=== PATIENT | female | born 1980 | race Caucasian/White ===

== ENCOUNTER 2016-07-02 15:20 | Emergency (ER) | payer OTHER ==
[~2016-07-02] VITALS: Ht 167.6 cm; Wt 72.6 kg
[2016-07-02 15:25] VITALS: BP 133/92
[2016-07-02 15:43] VITALS: BP 124/85
--- NOTE | 2016-07-02 22:30 | NUR ---
TO ER BED 5
--- NOTE | 2016-07-02 22:30 | NUR ---
PLACED IN BED 5. HERE FOR PAIN AND LUMP ON THE GENITAL AREA. AWAITING ER-MD EVALUATION.
--- NOTE | 2016-07-02 22:35 | NUR ---
MD CAME AT BEDSIDE TO EVALUATE PT.
[2016-07-02] MEDS ORDERED: IBUPROFEN 800 MG TAB PO ONE (23:00)
[2016-07-02] MEDS ORDERED: SULFAMETH/TRIMETH DS 800/160MG 1 TAB PO ONE (23:00)
[2016-07-02 23:20] VITALS: BP 124/85
--- NOTE | 2016-07-02 23:22 | NUR ---
Patient discharged with v/s stable. Written and verbal after care instructions given and explained. Patient alert, oriented and verbalized understanding of instructions. Ambulatory with steady gait. All questions addressed prior to discharge. ID band removed. Patient advised to follow up with PMD. Rx of BACTRIM AND IBUPROFEN given. Patient educated on indication of medication including possible reaction and side effects. Opportunity to ask questions provided and answered.
== END 2016-07-02 23:22 | disposition home or self-care (01) ==
LOC: MED 15:20
DX: L03.314 Cellulitis of groin (principal); R03.0 Elevated blood-pressure reading, without diagnosis of hypertension; Z87.442 Personal history of urinary calculi

== ENCOUNTER 2016-10-18 14:09 | Emergency (ER) | payer OTHER ==
[~2016-10-18] VITALS: Ht 167.6 cm; Wt 70.8 kg
[2016-10-18 14:36] VITALS: BP 130/76
--- NOTE | 2016-10-18 15:15 | NUR ---
PT TO BED 7 AT THIS TIME.
--- NOTE | 2016-10-18 15:16 | NUR ---
36/F BIB SELF C/O RIGHT EYE PAIN 10/10 WITH DIZZINESS, HEADACHE, AND NAUSEA STARTED 11AM TODAY; DENIES N/V/D; SKIN IS PINK/WARM/DRY; AAOX4 WITH EVEN AND STEADY GAIT; LUNGS CLEAR BL; HR EVEN AND REGULAR; PT DENIES ANY FEVER, CP, SOB, OR COUGH AT THIS TIME; PATIENT STATES PAIN OF10/10 AT THIS TIME; VSS; PATIENT POSITIONED FOR COMFORT; HOB ELEVATED; BEDRAILS UP X2; BED DOWN. ER MD MADE AWARE OF PT STATUS.
--- NOTE | 2016-10-18 15:18 | NUR ---
DR FRANCIS EVALUATING PT AT BEDSIDE
[2016-10-18] MEDS ORDERED: TETRACAINE 0.5% OPTH SOL 2 ML BTL OP ONE (15:20)
--- NOTE | 2016-10-18 15:32 | NUR ---
Zackary huggins in ED - 10/18/16 at 1533 by MED1 I&D DONE BY ROMAIN HALL. PT TOLERATED PROCEDURE WELL.
[2016-10-18] MEDS ORDERED: KETOROLAC 60 MG/2 ML VIAL IM ONE (15:40)
[2016-10-18] MEDS ORDERED: LIDOCAINE 1% 500 MG/50 ML VIAL INJ ONE (16:35)
--- NOTE | 2016-10-18 16:40 | NUR ---
DR FRANCIS ADMINISTERED XYLOCINE TO R LOER BACK OF SKULL. PT TOLERATED PROCEDURE WELL.Patient appears to be resting comfortably in bed. Vital Signs within normal limits. Respirations even and unlabored.WILL CONTINUE TRO MONITOR.
[2016-10-18 17:25] VITALS: BP 125/82
== END 2016-10-18 17:25 | disposition home or self-care (01) ==
LOC: MED 14:09
DX: R51 Headache (principal); H57.11 Ocular pain, right eye; H53.8 Other visual disturbances; R11.0 Nausea
CPT/HCPCS: 20552; 96372; 99284; J1885; J2001; 99283

== ENCOUNTER 2017-10-21 12:21 | Emergency (ER) | payer SELFPAY ==
[~2017-10-21] VITALS: Ht 165.1 cm; Wt 73.5 kg
[2017-10-21 12:24] VITALS: BP 121/80
[2017-10-21] MEDS ORDERED: KETOROLAC 60 MG/2 ML VIAL IM ONE (12:40)
[2017-10-21] MEDS ORDERED: diphenhydrAMINE 50 MG CAP PO ONE (12:40)
[2017-10-21] MEDS ORDERED: fentaNYL 0.05 MG/ML VIAL IM ONE (13:40)
[2017-10-21 15:46] VITALS: BP 122/65
== END 2017-10-21 15:46 | disposition home or self-care (01) ==
LOC: MED 12:21
DX: G44.209 Tension-type headache, unspecified, not intractable (principal); H53.8 Other visual disturbances
CPT/HCPCS: 81002; 81025; 96372; 99284; J1885; J3010; Q0163

== ENCOUNTER 2018-02-24 11:34 | Emergency (ER) | payer OTHER ==
[~2018-02-24] VITALS: Ht 167.6 cm; Wt 73.5 kg
--- NOTE | 2018-02-24 11:39 | NUR ---
PATIENT AMBULATED TO ER BED 7.
[2018-02-24 11:43] VITALS: BP 120/64
--- NOTE | 2018-02-24 12:03 | NUR ---
PT C/O 09/17 LOWER ABD CRAMPING SINCE TODAY. DENIES N/V/D. NO FEVERS, CP, SOB. NO OTHER COMPLAINTS. PT GIVEN URINE CUP AT TIME OF TRIAGE. DENIES URINARY BURNING AND FREQUENCY. PT STATES PRESSURE IS INTENSIFIED DURING URINATION. PT STATES SHE FEELS PRESSURE OR 'PUSHING' AND RADIATES TO FLANKS. VSS; PATIENT POSITIONED FOR COMFORT; HOB ELEVATED; BEDRAILS UP X1; BED DOWN. ER MD MADE AWARE OF PT STATUS.
--- NOTE | 2018-02-24 12:10 | NUR ---
STILL COMPLAINING OF ABD. PAIN 08/18. DR. OWUSU MADE AWARE
[2018-02-24] MEDS ORDERED: NACL 0.9% 1,000 ML IV SCH (12:19)
[2018-02-24] MEDS ORDERED: MORPHINE SULFATE 4 MG/ML SYR IVP ONE (12:20)
[2018-02-24] MEDS ORDERED: KETOROLAC 30 MG/ML VIAL IVP ONE (12:20)
[2018-02-24] MEDS ORDERED: ONDANSETRON 4 MG/2 ML VIAL IVP ONE (12:20)
[2018-02-24 13:19] LABS: BASOPHILS # (AUTO) 0.1 K/uL (0.00-0.22); BASOPHILS % (AUTO) 1.5 % (0.0-2.0); EOSINOPHILS # (AUTO) 0.1 K/uL (0-0.4); HEMATOCRIT 28.7 % (36-48); HEMOGLOBIN 8.6 g/dL (12.0-16.0); LYMPHOCYTES # (AUTO) 1.6 K/uL (2.5-16.5); LYMPHOCYTES % (AUTO) 21.7 % (20.5-51.1); MEAN CORPUSCULAR HEMOGLOBIN 19 pg (27-31); MEAN CORPUSCULAR HGB CONC 30 g/dL (33-37); MEAN CORPUSCULAR VOLUME 64.2 fL (80-94); MONOCYTES # (AUTO) 0.4 K/uL (0.8-1.0); MONOCYTES % (AUTO) 5.4 % (1.7-9.3); NEUTROPHILS % (AUTO) 69.4 % (42.2-75.2); PLATELET COUNT (AUTO) 381 K/uL (140-450); RED BLOOD CELL COUNT(AUTO) 4.47 MIL/uL (4.20-5.40); RED CELL DISTRIBUTION WIDTH 18.7 % (11.6-13.7); WHITE BLOOD COUNT (AUTO) 7.2 K/uL (4.8-10.8)
[2018-02-24 13:22] LABS: APPEARANCE,URINE CLEAR (CLEAR); BILIRUBIN,URINE NEGATIVE (NEGATIVE); BLOOD, URINE NEGATIVE (NEGATIVE); COLOR,URINE YELLOW (YELLOW); LEUKOCYTE ESTERASE ,URINE NEGATIVE (NEGATIVE); NITRITE, URINE NEGATIVE (NEGATIVE); UGLUCOSE NEGATIVE (NEGATIVE)
[2018-02-24 13:28] LABS: ANION GAP 11.4 (8-16); CARBON DIOXIDE 27.1 mmol/L (21-32); CREATININE 0.6 mg/dL (0.6-1.3); POTASSIUM 3.5 mmol/L (3.5-5.1)
[2018-02-24 13:33] LABS: ALBUMIN 4.2 g/dL (3.4-5.0); TOTAL BILIRUBIN 0.2 mg/dL (0.0-1.0); URIC ACID 2.6 mg/dL (2.6-7.2)
[2018-02-24] MEDS ORDERED: GLYCOPYRROLATE 0.2 MG/ML VIAL IV ONE (14:15)
[2018-02-24] MEDS ORDERED: HYDROmorphone 1 MG/ML AMP IVP ONE (14:15)
[2018-02-24 15:39] VITALS: BP 120/64
--- NOTE | 2018-02-24 15:41 | NUR ---
Patient discharged with v/s stable. Written and verbal after care instructions given and explained. Patient alert, oriented and verbalized understanding of instructions. Ambulatory with steady gait. All questions addressed prior to discharge. ID band removed. Patient advised to follow up with PMD. Rx of BENTYL, TRAMADOL, FLOMAX given. Patient educated on indication of medication including possible reaction and side effects. Opportunity to ask questions provided and answered.
== END 2018-02-24 15:41 | disposition home or self-care (01) ==
LOC: MED 11:34
DX: R10.32 Left lower quadrant pain (principal); F17.210 Nicotine dependence, cigarettes, uncomplicated; Z87.442 Personal history of urinary calculi
CPT/HCPCS: 36415; 74176; 80053; 81003; 82150; 83690; 84550; 85025; 96374; 96375; 99284; J1170; J1885; J2270; J2405; J3490; J7030

== ENCOUNTER 2018-06-20 16:11 | Emergency (ER) | payer OTHER ==
[~2018-06-20] VITALS: Ht 167.6 cm; Wt 77.1 kg
[2018-06-20 16:16] VITALS: BP 133/82
--- NOTE | 2018-06-20 16:28 | NUR ---
PT IN XRAY THEN TO ER BED 12
--- NOTE | 2018-06-20 16:34 | NUR ---
BIB SELF. AAOX4 C/O R KNEE PAIN XTODAY. PT STATES 10/10 ACHING PAIN. MILD SWELLING NOTED TO R KNEE. CAP REFILL <3 SECS. + MOVEMENT. PT STATES THAT SHE WAS OFFLOADING BOXES FROM THE TRUCK WHILE SQUATTING AND PAIN OCCURED TO R KNEE. PT DENIES TRAUMA OR INJURY. HOB UP. BED SIDE RAILS UP X1. ON LOW BED POSITION, LOCKED. ER MADE AWARE OF PT STATUS.
--- NOTE | 2018-06-20 19:08 | NUR ---
RECEIVED REPORT FROM GABI PADGETT.
[2018-06-20] MEDS ORDERED: KETOROLAC 60 MG/2 ML VIAL IM ONE (19:40)
[2018-06-20] MEDS ORDERED: HYDROcodone/APAP 5/325 MG 1 TAB TAB PO ONE (19:40)
--- NOTE | 2018-06-20 20:24 | NUR ---
Patient discharged with v/s stable. Written and verbal after care instructions given and explained. Patient alert, oriented and verbalized understanding of instructions. Ambulatory with steady gait. All questions addressed prior to discharge. ID band removed. Patient advised to follow up with PMD. Rx of IBUPROFEN, NORCO given. Patient educated on indication of medication including possible reaction and side effects. Opportunity to ask questions provided and answered.
[2018-06-20 20:25] VITALS: BP 113/59
== END 2018-06-20 20:24 | disposition home or self-care (01) ==
LOC: MED 16:11
DX: M25.561 Pain in right knee (principal); Z87.442 Personal history of urinary calculi
CPT/HCPCS: 73562; 81002; 96372; 99283; J1885

== ENCOUNTER 2018-10-06 03:05 | Emergency (ER) | payer OTHER ==
[~2018-10-06] VITALS: Ht 167.6 cm; Wt 76.7 kg
[2018-10-06 03:05] VITALS: BP 128/79
--- NOTE | 2018-10-06 03:05 | NUR ---
TO BED # 05 AMBULATORY
--- NOTE | 2018-10-06 03:30 | NUR ---
38 YO F BIB SELF PRESENTS TO ED C/O DIZZINESS AND NAUSEA X 1 HOUR. PT STATES SHE WOKE UP AT 2 AM FEELING DIZZY, WEAK AND NAUSEOUS. PT STATES SHE HAS NEVER EXPERIENCED THIS BEFORE. PT STATES SHE HAS HX OF KIDNEY AND GALLSTONES AND WAS HAVING BACK PAIN THE DAY BEFORE AND FEELS LIKE THIS MAY BE RELATED. -- PT AWAKE, ALERT, CALM, COOPERATIVE. ANSWERING QUESTIONS APPROPRIATELY. SPEECH IS CLEAR. BILATERAL HAND PRIVATE ADVISOR WITH EQUAL STRENGTH NOTED. BEHAVIOR AGE APPROPRIATE. -- SKIN PINK, WARM, DRY. BREATHING EVEN, UNLABORED. PMH-- DENIES RX-- DENIES
--- NOTE | 2018-10-06 03:39 | NUR ---
Dr. Galicia examining patient.
[2018-10-06] MEDS ORDERED: NACL 0.9% 1,000 ML IV ONE (03:40)
[2018-10-06] MEDS ORDERED: ONDANSETRON 4 MG/2 ML VIAL IVP ONE (03:40)
--- NOTE | 2018-10-06 04:00 | NUR ---
LAB AT BEDSIDE.
[2018-10-06 04:07] LABS: BASOPHILS # (AUTO) 0.1 K/uL (0.00-0.22); HEMOGLOBIN 8.1 g/dL (12.0-16.0); LYMPHOCYTES # (AUTO) 1.8 K/uL (2.5-16.5); LYMPHOCYTES % (AUTO) 23.6 % (20.5-51.1); MONOCYTES # (AUTO) 0.7 K/uL (0.8-1.0); NEUTROPHILS # (AUTO) 4.7 K/uL (1.8-7.7); WHITE BLOOD COUNT (AUTO) 7.5 K/uL (4.8-10.8)
[2018-10-06 04:12] LABS: BASOPHILS % (AUTO) 0.9 % (0.0-2.0); EOSINOPHILS # (AUTO) 0.2 K/uL (0-0.4); EOSINOPHILS % (AUTO) 2.6 % (0.0-4.0); HEMATOCRIT 26.7 % (36-48); MEAN CORPUSCULAR HEMOGLOBIN 19 pg (27-31); MEAN CORPUSCULAR HGB CONC 30 g/dL (33-37); MEAN CORPUSCULAR VOLUME 62.2 fL (80-94); MONOCYTES % (AUTO) 9.4 % (1.7-9.3); NEUTROPHILS % (AUTO) 63.5 % (42.2-75.2); PLATELET COUNT (AUTO) 369 K/uL (140-450); RED BLOOD CELL COUNT(AUTO) 4.28 MIL/uL (4.20-5.40); RED CELL DISTRIBUTION WIDTH 19.1 % (11.6-13.7)
[2018-10-06 04:17] LABS: ANION GAP 14.6 (8-16); CARBON DIOXIDE 25.3 mmol/L (21-32); CREATININE 0.6 mg/dL (0.6-1.3); POTASSIUM 3.9 mmol/L (3.5-5.1)
[2018-10-06 04:23] LABS: ALBUMIN 3.6 g/dL (3.4-5.0); TOTAL BILIRUBIN 0.2 mg/dL (0.0-1.0)
--- NOTE | 2018-10-06 04:55 | NUR ---
PT REPORTS NO MORE NAUSEA. ZOFRAN EFFECTIVE. PT IS NOW C/O 08/[address] RAMACHANDRAN NOTIFIED.
--- NOTE | 2018-10-06 05:06 | NUR ---
RN WALKED URINE TO LAB.
[2018-10-06 05:14] LABS: APPEARANCE,URINE SL CLOUDY (CLEAR); BILIRUBIN,URINE NEGATIVE (NEGATIVE); BLOOD, URINE 1+ (NEGATIVE); COLOR,URINE YELLOW (YELLOW); LEUKOCYTE ESTERASE ,URINE NEGATIVE (NEGATIVE); NITRITE, URINE NEGATIVE (NEGATIVE); UGLUCOSE NEGATIVE (NEGATIVE)
[2018-10-06 05:31] LABS: WBC,URINE 0-5 /HPF (0-5)
--- NOTE | 2018-10-06 05:45 | NUR ---
PT TAKEN TO CT
--- NOTE | 2018-10-06 05:56 | NUR ---
PT RETURN FROM CT
[2018-10-06] MEDS ORDERED: cefTRIAXone 1,000 MG VIAL ONE (06:17)
[2018-10-06] MEDS ORDERED: MORPHINE SULFATE 4 MG/ML SYR IVP ONE (06:25)
--- NOTE | 2018-10-06 06:30 | NUR ---
Patient appears to be resting comfortably in bed. Vital Signs within normal limits. Respirations even and unlabored.
--- NOTE | 2018-10-06 07:10 | NUR ---
REPORT GIVEN TO GABI LANTIGUA. TRANSFER OF CARE AT THIS TIME.
--- NOTE | 2018-10-06 07:11 | NUR ---
REPORT RECEIVED FROM GABI RIOS.
--- NOTE | 2018-10-06 07:11 | NUR ---
Zackary huggins in [facility] - 10/06/18 at 0738 by GEGE REPORT RECEIVED FROM GABI RICHTER.
[2018-10-06] MEDS ORDERED: ONDANSETRON 4 MG ODT PO ONE (08:20)
--- NOTE | 2018-10-06 09:44 | NUR ---
Dr. Nsasar evaluating patient at bedside.
[2018-10-06] MEDS ORDERED: MECLIZINE 25 MG TAB PO ONE ×2 (09:50→10:00)
[2018-10-06 11:05] VITALS: BP 110/62
--- NOTE | 2018-10-06 11:05 | NUR ---
Patient discharged with v/s stable. Written and verbal after care instructions given and explained. Patient alert, oriented and verbalized understanding of instructions. Ambulatory with steady gait. All questions addressed prior to discharge. ID band removed. Patient advised to follow up with PMD. Rx of CIPROFLOXACIN, MECLIZINE given. Patient educated on indication of medication including possible reaction and side effects. Opportunity to ask questions provided and answered.
== END 2018-10-06 11:05 | disposition home or self-care (01) ==
LOC: MED 03:05
DX: H81.10 Benign paroxysmal vertigo, unspecified ear (principal); D64.9 Anemia, unspecified; R10.31 Right lower quadrant pain
CPT/HCPCS: 36415; 70450; 74176; 80053; 81001; 81025; 85025; 86886; 86900; 86901; 86920; 87086; 96361; 96365; 96375; 99284; J0696; J2270; J2405; J7030; J8597; Q0162

== ENCOUNTER 2021-08-29 14:56 | Emergency (ER) | payer OTHER ==
[~2021-08-29] VITALS: Ht 167.6 cm; Wt 74.8 kg
[2021-08-29 15:13] VITALS: BP 125/72
--- NOTE | 2021-08-29 15:18 | NUR ---
EKG AT THRIAGE ROOM.
--- NOTE | 2021-08-29 15:47 | NUR ---
PT AMB TO BED 8.
[2021-08-29] MEDS ORDERED: ASPIRIN 81 MG TAB.CHEW PO ONE (16:10)
--- NOTE | 2021-08-29 16:10 | NUR ---
Dr. Magaña at bedside evaluating patient.
[2021-08-29 16:25] LABS: BASOPHILS % (AUTO) 0.4 % (0.0-2.0); EOSINOPHILS # (AUTO) 0.1 K/uL (0-0.4); EOSINOPHILS % (AUTO) 1.1 % (0.0-4.0); HEMATOCRIT 40.1 % (36-48); HEMOGLOBIN 13.4 g/dL (12.0-16.0); LYMPHOCYTES # (AUTO) 1.8 K/uL (2.5-16.5); LYMPHOCYTES % (AUTO) 18.3 % (20.5-51.1); MEAN CORPUSCULAR HEMOGLOBIN 29 pg (27-31); MEAN CORPUSCULAR HGB CONC 33 g/dL (33-37); MEAN CORPUSCULAR VOLUME 88.2 fL (80-94); MONOCYTES # (AUTO) 0.5 K/uL (0.8-1.0); MONOCYTES % (AUTO) 5.3 % (1.7-9.3); NEUTROPHILS # (AUTO) 7.4 K/uL (1.8-7.7); NEUTROPHILS % (AUTO) 74.9 % (42.2-75.2); PLATELET COUNT (AUTO) 313 K/uL (140-450); RED BLOOD CELL COUNT(AUTO) 4.55 MIL/uL (4.20-5.40); RED CELL DISTRIBUTION WIDTH 15.7 % (11.6-13.7); WHITE BLOOD COUNT (AUTO) 9.9 K/uL (4.8-10.8)
--- NOTE | 2021-08-29 16:32 | NUR ---
41 y/o female bib self with c/o chest pain x 2 weeks. Patient has been having chest pain x 2 weeks on and off. Patient states pain increased today and won't go away. Patient has a 8/10 stepping on pain. Denies any SOB, nausea or vomiting. Medical History: Denies NKDA
--- NOTE | 2021-08-29 16:38 | NUR ---
Radiology at bedside.
[2021-08-29 16:58] LABS: CARBON DIOXIDE 28.2 mmol/L (21-32); CREATININE 0.6 mg/dL (0.6-1.3); POTASSIUM 4.2 mmol/L (3.5-5.1)
[2021-08-29] MEDS ORDERED: ACET-1182 PO (17:36)
[2021-08-29] MEDS ORDERED: ACET-9882 PO (17:36)
[2021-08-29 17:50] VITALS: BP 118/67
--- NOTE | 2021-08-29 17:50 | NUR ---
Patient discharged with v/s stable. Written and verbal after care instructions given. Patient alert, oriented and verbalized understanding of instructions. Ambulatory with steady gait. All questions addressed prior to discharge. ID band removed. Patient advised to follow up with PMD. Rx of Acetaminophen and Acetaminophen Extra Strength given. Opportunity to ask questions provided and answered.
--- NOTE | 2021-08-29 17:51 | NUR ---
Chart checked and completed. The patient's care was reviewed and supervised by Lyndsay Ruiz RN.
== END 2021-08-29 17:50 | disposition home or self-care (01) ==
LOC: MED 14:56
DX: R07.89 Other chest pain (principal); F17.200 Nicotine dependence, unspecified, uncomplicated; D64.9 Anemia, unspecified; Z90.710 Acquired absence of both cervix and uterus; Z98.890 Other specified postprocedural states
CPT/HCPCS: 36415; 71045; 80048; 84484; 85025; 93005; 99285

== ENCOUNTER 2021-11-24 06:39 | Emergency (ER) | payer OTHER ==
[~2021-11-24] VITALS: Ht 167.6 cm; Wt 72.6 kg
[~2021-11-24 06:39] MED LIST: ACET-1182 PO; ACET-9882 PO
[2021-11-24 06:41] VITALS: BP 125/76
--- NOTE | 2021-11-24 06:47 | NUR ---
PT TAKEN TO BED 5
--- NOTE | 2021-11-24 07:20 | NUR ---
Female Amusement Ride Inspector accompanied female patient for BREAST Exam.
[2021-11-24] MEDS ORDERED: KETOROLAC 60 MG/2 ML VIAL IM ONE (07:25)
--- NOTE | 2021-11-24 07:25 | NUR ---
41YO FEMALE PT C/O /10 L BREAST PAIN XTHIS MORNING. PT STATES SUDDEN ONSET WITH PAIN AT MOST ON MOVEMENT OR TOUCH. BREAST PRESENTS W/O VISIBLE INJURY, TENDER TO TOUCH. DENIES TAKING MEDICATION FOR PAIN , N/V/D, CHEST PAIN OR SOB. PT AAOX4, NO VISIBLE DISTRESS. RESPIRATIONS EVEN AND UNLABORED. HOB POSITIONED PER COMFORT, BED AT LOWEST POSITION, BED RAIL UPX1 HX: DENIES NKA
[2021-11-24] MEDS ORDERED: CEPH-588 PO (07:34)
[2021-11-24] MEDS ORDERED: TRAM50TA1 PO (07:34)
[2021-11-24] MEDS ORDERED: IBUP-2213 PO (07:34)
[2021-11-24 08:21] VITALS: BP 120/80
--- NOTE | 2021-11-24 08:21 | NUR ---
Patient discharged with v/s stable. Written and verbal after care instructions FOR BREAST TENDERNESS given and explained. Patient alert, oriented and verbalized understanding of instructions. Ambulatory with steady gait. All questions addressed prior to discharge. ID band removed. Patient advised to follow up with PMD. Rx of KELFEX, IBUPROFEN AND ULTRAM given. Opportunity to ask questions provided and answered.
--- NOTE | 2021-11-24 08:22 | NUR ---
The patient's care was reviewed and supervised by Margaret Bertrand RN.
== END 2021-11-24 08:21 | disposition home or self-care (01) ==
LOC: MED 06:39
DX: N64.4 Mastodynia (principal); Z87.448 Personal history of other diseases of urinary system; Z79.899 Other long term (current) drug therapy; Z79.2 Long term (current) use of antibiotics; Z79.1 Long term (current) use of non-steroidal anti-inflammatories (NSAID)
CPT/HCPCS: 96372; 99283; J1885